=== PATIENT | female | born 1995 | race Caucasian/White ===

== ENCOUNTER 2017-04-30 14:32 | Emergency (ER) | payer SELFPAY ==
[~2017-04-30] VITALS: Ht 152.4 cm; Wt 56.8 kg
[2017-04-30 14:40] VITALS: TEMP 98.6
[2017-04-30] MEDS ORDERED: ATIVAN 1MG T1 MG/TAB PO (15:56)
[2017-04-30 16:13] LABS: BASO % 0.5 % (0.0-2.0); EOS # 0.1 (0.0-0.7); EOS % 0.9 % (0-4.0); GRAN # 3.9 (1.4-6.5); GRAN % 60.9 % (42.2-75.2); LYMPH # 2.1 (1.2-3.4); LYMPH % 32.8 % (20.0-51.0); MEAN CELL VOLUME 83 fl (80.0-95.0); MEAN CORPUSCULAR HGB CONC 32 g/dl (33.0-37.0); MEAN PLATELET VOLUME 10.4 fl (7.4-10.4); MONO # 0.3 (0.1-0.6); MONO % 4.7 % (1.7-9.3); PLATELET COUNT 273 K/mm3 (130-400); RED BLOOD COUNT 4.41 M/mm3 (4.10-5.30); REDCELL DISTRIBUTION WIDTH-CV 13.2 % (11.5-14.5); WHITE BLOOD COUNT 6.4 K/mm3 (4.8-10.8)
[2017-04-30 16:15] LABS: HEMATOCRIT 36.8 % (35.0-45.0); HEMOGLOBIN 11.7 g/dl (12.0-15.0); MEAN CORPUSCULAR HEMOGLOBIN 27 pg (26.0-32.0)
[2017-04-30 16:19] LABS: ANION GAP 11 mmol/L (7-16); BLOOD UREA NITROGEN 9 mg/dL (7-17); CALCIUM 9.5 mg/dL (8.4-10.2); CARBON DIOXIDE 24 mmol/L (22-30); CHLORIDE 104 mmol/L (98-107); CREATININE, serum 0.71 mg/dL (0.52-1.25); GLUCOSE 89 mg/dL (74-106); SODIUM 139 mmol/L (137-145)
[2017-04-30 16:39] LABS: TROPONIN-I < 0.012 ng/mL (0.000-0.034)
[2017-04-30 17:22] VITALS: BP 115/66; PULSE 76
== END 2017-04-30 17:29 | disposition home or self-care (01) ==
LOC: COL.ER 14:32
PROVIDERS: Emergency Medicine
DX: R07.9 Chest pain, unspecified (principal); R00.2 Palpitations

== ENCOUNTER 2021-12-12 19:25 | Emergency (ER) | payer SELFPAY ==
[~2021-12-12 19:25] MED LIST: ATIVAN 1MG T1 MG/TAB PO
[2021-12-12 20:42] LABS: COLLECTION METHOD CLEAN CATCH
[2021-12-12 20:46] LABS: MUCOUS Present (NOT PRESENT); PH 6 (5-8); URINE APPEARANCE Clear (CLEAR/HAZY); URINE BACTERIA None Seen /hpf (NONE SEEN); URINE BILIRUBIN Negative (NEGATIVE); URINE BLOOD Negative (NEGATIVE); URINE COLOR Yellow (YELLOW); URINE GLUCOSE Negative (NEGATIVE); URINE KETONE Negative (NEGATIVE); URINE LEUKOCYTE ESTERASE Negative (NEGATIVE); URINE NITRATE Negative (NEGATIVE); URINE PROTEIN(semi-quant) Negative (NEGATIVE); URINE RBC 0-2 /hpf (0-2); URINE UROBILINOGEN Negative (NEGATIVE)
[2021-12-12 20:49] LABS: BASO % 0.2 % (0.0-2.0); EOS # 0.2 K/mm3 (0.0-0.7); EOS % 2.6 % (0.0-4.0); GRAN # 3.5 K/mm3 (1.4-6.5); GRAN % 54.4 % (42.2-75.2); HEMATOCRIT 39.7 % (37.0-47.0); LYMPH # 2.4 K/mm3 (1.2-3.4); LYMPH % 37.2 % (20.0-51.0); MEAN CELL VOLUME 89 fl (80.0-100.0); MEAN CORPUSCULAR HEMOGLOBIN 29 pg (27-31); MEAN CORPUSCULAR HGB CONC 33 g/dl (33.0-37.0); MEAN PLATELET VOLUME 10.8 fl (7.4-10.4); MONO # 0.4 K/mm3 (0.1-0.6); MONO % 5.4 % (1.7-9.3); PLATELET COUNT 238 K/mm3 (130-400); RED BLOOD COUNT 4.47 M/mm3 (4.10-5.30); REDCELL DISTRIBUTION WIDTH-CV 12.5 % (11.5-14.5)
[2021-12-12 20:58] LABS: ALBUMIN 4.1 gm/dL (3.5-5.0); BILIRUBIN,TOTAL 0.2 mg/dL (0.2-1.2); CALCIUM 8.9 mg/dL (8.4-10.2); CREATININE, serum 0.75 mg/dL (0.57-1.11); POTASSIUM 3.8 mmol/L (3.5-4.5); TOTAL PROTEIN 7.1 gm/dL (6.2-8.1)
[2021-12-12 21:17] VITALS: BP 131/85; PULSE 69; TEMP 98.8
== END 2021-12-12 21:15 | disposition home or self-care (01) ==
LOC: COL.ER 19:25
PROVIDERS: Physician Assistant
DX: R10.31 Right lower quadrant pain (principal); Z32.02 Encounter for pregnancy test, result negative